=== PATIENT | male | born 1975 | race Caucasian/White ===

== ENCOUNTER 2023-04-08 14:28 | Outpatient (AMB) | payer OTHER, SELFPAY ==
--- NOTE | 2023-04-08 15:49 | AM.OFFWIN_ITS ---
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 patient has a rash on the right side of his face. Symptoms started a few days ago. PFSH Social History Patient Tobacco Use Status: Current everyday Tobacco user Physical Exam Vital Signs: Last Vital Signs Temp 97.8 F 04/08/23 15:52 Pulse 78 04/08/23 15:52 BP 130/84 04/08/23 15:52 Pulse Ox 98 04/08/23 15:52 Oxygen Delivery Method Room Air 04/08/23 15:52 BMI result Body Mass Index 29.2 Skin Other: Erythema status vesicular rash along the right C2 and C3 dermatome. Says several healing lesions present. Assessment & Plan Assessment & Plan (1) Herpes zoster: Code(s): B02.9 - Zoster without complications Qualifiers: Herpes zoster complications: without complications Qualified Code(s): B02.9 - Zoster without complications Plan: Valacyclovir prescribed. There is no eye involvement. 15 minutes spent on explaining the disease to the patient. Medications: New valacyclovir 500 mg PO BID 20 tabs 0RF Coding Level of Care Code Est Pt Level 4 (62738) Diagnoses Herpes zoster without complication B02.9 Herpes zoster complications: without complications
[2023-04-08 15:52] VITALS: BP 130/84; PULSE 78; TEMP 36.6; O2SAT 98; BMI 29.2
== END 2023-04-08 16:38 | disposition home or self-care (01) ==
PROVIDERS: Visit Provider Internal Medicine
DX: B02.9 Zoster without complications (principal)
CPT/HCPCS: 99214